=== PATIENT | male | born 1980 | race Caucasian/White ===

== ENCOUNTER 2023-08-03 05:29 | Emergency (ER) | payer MEDICAID ==
[~2023-08-03] VITALS: Ht 185.4 cm; Wt 68.5 kg
[2023-08-03] MEDS ORDERED: CEPHALEXIN500 M1 PO (06:27)
[2023-08-03] MEDS ORDERED: TRAMADOL HCL50 MG PO (06:27)
[2023-08-03] MEDS ORDERED: TRAMADOL HCL 50 MG HOME.PACK PO ONE (06:30)
[2023-08-03] MEDS ORDERED: CEPHALEXIN MONOHYDRATE 500 MG HOME.PACK PO ONE (06:30)
[2023-08-03 06:40] VITALS: BP 161/91
== END 2023-08-03 06:42 | disposition home or self-care (01) ==
LOC: ED 05:29
DX: K04.7 Periapical abscess without sinus (principal)
CPT/HCPCS: 99282; A9270